=== PATIENT | male | born 2000 | race Caucasian/White ===

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

== ENCOUNTER 2018-05-24 00:12 | Emergency (ER) | END 2018-05-24 04:11 | disposition home or self-care (01) ==

== ENCOUNTER 2018-08-22 10:31 | Emergency (ER) | payer OTHER ==
[~2018-08-22] VITALS: Ht 177.8 cm; Wt 121.2 kg
[~2018-08-22 10:31] MED LIST: GLYB2.5T2 PO; IBUP-1542 PO; MTF1000T PO
[2018-08-22 10:41] VITALS: BP 183/96; PULSE 68; RESP 20; Ht 177.8 cm; Wt 121.2 kg
[2018-08-22] MEDS ORDERED: D-ME473S2 PO (12:12)
[2018-08-22] MEDS ORDERED: AZIT250T PO (12:12)
--- NOTE | 2018-08-22 12:20 | ERD ---
ER Documentation Chief Complaint Chief Complaint Patient states that he coughed up blood at 0700 this am HPI 17-year-old male presents with cough for last few days. He said intermittent no sebleeds since last night. He currently has no bleeding. He is concerned because he coughed up some blood this morning although he does have some mucus as well. Denies any history of tobacco use, shortness of breath, chest pain, fevers, bruising, additional bleeding. ROS All systems reviewed and are negative except as per history of present illness. Medications Home Meds Active Scripts Azithromycin* (Zithromax*) 250 Mg Tablet, 250 MG PO .ZPACK DIRECTED, #6 TAB TAKE 500 MG (2 TABS) THE FIRST DAY THEN 250 MG (1 TAB) DAYS 2-5 Prov:ELLEN PEREZ MD 08/22/18 Dextromethorphan Hb-Promethazine Hcl* (Promethazine DM* Syrup) 473 Ml Syrup, 5 ML PO Q6 PRN for COUGH for 5 Days, ML Prov:ELLEN PEREZ MD 08/22/18 Ibuprofen* (Motrin*) 600 Mg Tab, 600 MG PO Q6H PRN for PAIN AND OR ELEVATED TEMP, #30 TAB Prov:KODAK SESAY NP 05/24/18 Glyburide* (Glyburide*) 2.5 Mg Tablet, 2.5 MG PO DAILY for 30 Days, #30 TAB Prov:NICOLE KOENIG MD 08/31/17 Metformin* (Glucophage*) 1,000 Mg Tablet, 1000 MG PO BID for 60 Days, #60 TAB Prov:NICOLE KOENIG MD 08/31/17 Allergies Allergies: Coded Allergies: No Known Allergies (Verified Allergy, Unknown, 08/30/17) PMhx/Soc History of Surgery: No Anesthesia Reaction: No Hx Neurological Disorder: No Hx Respiratory Disorders: No Hx Cardiac Disorders: Yes (HTN ) Hx Psychiatric Problems: No Hx Miscellaneous Medical Probl: Yes (DM) Hx Alcohol Use: Yes Hx Substance Use: No Hx Tobacco Use: No FmHx Family History: No diabetes, No coronary disease, No other Physical Exam Vitals Vital Signs Date Temp Pulse Resp B/P (MAP) Pulse Ox O2 O2 Flow FiO2 Time Delivery Rate 08/22/18 97.5 68 20 183/96 97 10:41 (125) Physical Exam Const: No acute distress Head: Atraumatic Eyes: Normal Conjunctiva ENT: Normal External Ears, Nose and Mouth. TMs and oropharynx normal. Neck: Full range of motion. No meningismus. Resp: Clear to auscultation bilaterally Cardio: Regular rate and rhythm, no murmurs Abd: Soft, non tender, non distended. Normal bowel sounds Skin: No petechiae or rashes Back: No midline or flank tenderness Ext: No cyanosis, or edema Neur: Awake and alert Psych: Normal Mood and Affect Procedures/MDM Patient presents with a productive cough with hemoptysis noticed today. X-ray was offered but patient declined. Patient may have coughed up blood from his epistaxis or may be related to productive cough. He has no signs of hypoxemia, rest or distress, concerning symptoms and doubt neoplasm, TB, blood dyscrasias. We will treat empirically with Zithromax, promethazine DM, primary care follow- up and return precautions. Patient was advised on proper stoppage of bleed nosebleeds. The patient was stable with no new complaints during the ER course. Clinically, there is no current evidence to suggest meningitis, sepsis, acute abdomen, pneumonia, stroke, acute coronary syndrome, pulmonary embolism, aortic dissection or any other emergent condition appearing to require further evaluation or hospitalization. Patient counseled regarding my diagnostic impression and care plan. Prior to discharge all questions answered. Pt agrees with treatment plan and understands strict return precautions. Pt is instructed to follow up with primary care provider within 24-48 hours. Precautionary instructions provided including instructions to return to the ER if not improving or for any worsening or changing symptoms or concerns. Departure Diagnosis: Primary Impression: Epistaxis Additional Impressions: Hemoptysis URI, acute Condition: Stable Patient Instructions: Bronchitis, Antiobiotic Treatment (Adult), Epistaxis (Adult), Hemoptysis Additional Instructions: Likely bronchitis and will treat for this. For worsening signs or symptoms, blood, shortness of breath, new symptoms. ELLEN PEREZ MD Aug 22, 2018 12:20
== END 2018-08-22 12:42 | disposition home or self-care (01) ==
LOC: FTE 10:31
DX: R04.0 Epistaxis (principal); J06.9 Acute upper respiratory infection, unspecified; I10 Essential (primary) hypertension; E11.9 Type 2 diabetes mellitus without complications; Z79.84 Long term (current) use of oral hypoglycemic drugs
CPT/HCPCS: 99283